=== PATIENT | male | born 1940 | race Caucasian/White ===

== ENCOUNTER → 2021-08-29 | Outpatient (CLI) | payer OTHER | LOC: HYPER 13:49 | PROVIDERS: ATTEND Emergency Medicine | DX: I87.333 Chronic venous hypertension (idiopathic) with ulcer and inflammation of bilateral lower extremity (principal); L97.812 Non-pressure chronic ulcer of other part of right lower leg with fat layer exposed; L97.822 Non-pressure chronic ulcer of other part of left lower leg with fat layer exposed; L03.115 Cellulitis of right lower limb; L03.116 Cellulitis of left lower limb; R60.0 Localized edema; I48.20 Chronic atrial fibrillation, unspecified; G60.3 Idiopathic progressive neuropathy; L30.9 Dermatitis, unspecified; L29.8 Other pruritus; M16.0 Bilateral primary osteoarthritis of hip; E78.2 Mixed hyperlipidemia; I25.10 Atherosclerotic heart disease of native coronary artery without angina pectoris; J45.909 Unspecified asthma, uncomplicated; R73.9 Hyperglycemia, unspecified; F32.89 Other specified depressive episodes; E66.01 Morbid (severe) obesity due to excess calories; Z87.891 Personal history of nicotine dependence; Z68.26 Body mass index [BMI] 26.0-26.9, adult; Z79.01 Long term (current) use of anticoagulants; Z89.422 Acquired absence of other left toe(s) ==

== ENCOUNTER → 2021-09-12 | Outpatient (CLI) | payer OTHER | LOC: HYPER 09:51 | PROVIDERS: ATTEND Emergency Medicine | DX: I87.332 Chronic venous hypertension (idiopathic) with ulcer and inflammation of left lower extremity (principal); L97.822 Non-pressure chronic ulcer of other part of left lower leg with fat layer exposed; L03.115 Cellulitis of right lower limb; L03.116 Cellulitis of left lower limb; R60.0 Localized edema; I48.20 Chronic atrial fibrillation, unspecified; G60.3 Idiopathic progressive neuropathy; I87.321 Chronic venous hypertension (idiopathic) with inflammation of right lower extremity; L30.9 Dermatitis, unspecified; L29.8 Other pruritus; R73.9 Hyperglycemia, unspecified; M16.0 Bilateral primary osteoarthritis of hip; E78.2 Mixed hyperlipidemia; J45.909 Unspecified asthma, uncomplicated; E66.01 Morbid (severe) obesity due to excess calories; F32.9 Major depressive disorder, single episode, unspecified; Z68.26 Body mass index [BMI] 26.0-26.9, adult; Z79.01 Long term (current) use of anticoagulants; Z89.422 Acquired absence of other left toe(s); Z87.891 Personal history of nicotine dependence ==

== ENCOUNTER → 2021-09-14 | Outpatient (CLI) | payer OTHER | LOC: SJCVCIMAG 08:23 | PROVIDERS: ATTEND Emergency Medicine | DX: M79.89 Other specified soft tissue disorders (principal); M79.604 Pain in right leg; M79.605 Pain in left leg ==

== ENCOUNTER → 2021-09-19 | Outpatient (CLI) | payer OTHER | LOC: HYPER 08:49 | PROVIDERS: ATTEND Emergency Medicine | DX: I87.333 Chronic venous hypertension (idiopathic) with ulcer and inflammation of bilateral lower extremity (principal); L97.822 Non-pressure chronic ulcer of other part of left lower leg with fat layer exposed; L97.812 Non-pressure chronic ulcer of other part of right lower leg with fat layer exposed; L03.115 Cellulitis of right lower limb; L03.116 Cellulitis of left lower limb; L30.9 Dermatitis, unspecified; L29.8 Other pruritus; G60.3 Idiopathic progressive neuropathy; R60.0 Localized edema; I73.9 Peripheral vascular disease, unspecified; I48.20 Chronic atrial fibrillation, unspecified; M16.0 Bilateral primary osteoarthritis of hip; J45.909 Unspecified asthma, uncomplicated; I25.10 Atherosclerotic heart disease of native coronary artery without angina pectoris; E78.2 Mixed hyperlipidemia; E66.01 Morbid (severe) obesity due to excess calories; F32.89 Other specified depressive episodes; F32.9 Major depressive disorder, single episode, unspecified; Z79.01 Long term (current) use of anticoagulants; Z87.891 Personal history of nicotine dependence; Z89.422 Acquired absence of other left toe(s) ==

== ENCOUNTER → 2021-11-21 | Outpatient (CLI) | payer OTHER | LOC: HYPER 14:33 | PROVIDERS: ATTEND Emergency Medicine | DX: I87.333 Chronic venous hypertension (idiopathic) with ulcer and inflammation of bilateral lower extremity (principal); L97.812 Non-pressure chronic ulcer of other part of right lower leg with fat layer exposed; L97.822 Non-pressure chronic ulcer of other part of left lower leg with fat layer exposed; L03.115 Cellulitis of right lower limb; L03.116 Cellulitis of left lower limb; R60.0 Localized edema; I48.20 Chronic atrial fibrillation, unspecified; G60.3 Idiopathic progressive neuropathy; L30.9 Dermatitis, unspecified; L29.8 Other pruritus; R73.9 Hyperglycemia, unspecified; E78.2 Mixed hyperlipidemia; M16.0 Bilateral primary osteoarthritis of hip; I25.10 Atherosclerotic heart disease of native coronary artery without angina pectoris; J45.909 Unspecified asthma, uncomplicated; F32.9 Major depressive disorder, single episode, unspecified; E66.01 Morbid (severe) obesity due to excess calories; Z68.26 Body mass index [BMI] 26.0-26.9, adult; Z87.891 Personal history of nicotine dependence; Z79.01 Long term (current) use of anticoagulants; Z89.422 Acquired absence of other left toe(s) ==